=== PATIENT | male | born 1980 | race Caucasian/White ===

== ENCOUNTER 2020-05-13 23:42 | Emergency (ER) | payer SELFPAY ==
[2020-05-14] MEDS ORDERED: Lidocaine/EPINEPHrine/Tetracaine Soln 1 ML TOP ONE (00:04)
[2020-05-14] MEDS ORDERED: Lidocaine 1% with EPINEPHrine 1:100,000 10 ML MDV INJECT ONE (00:04)
--- NOTE | 2020-05-14 00:08 | EDM.PDOC ---
ED HPI GENERAL MEDICAL PROBLEM - General Chief Complaint: Skin Complaint Stated Complaint: POSS BITE ON BUTTOCKS RED AND SWOLLEN Time Seen by Provider: 05/13/20 23:53 Source of Information: Reports: Patient History Limitations: Reports: No Limitations - History of Present Illness INITIAL COMMENTS - FREE TEXT/NARRATIVE: The patient presents with an abscess. This has been going on for about a week. He says the pain and swelling is not going down. He has never had anything like this before. He feels like he has a fever and chills. He is wondering if it is a spider bite. It is on the right upper inner buttock on the gluteal cleft. Onset: Gradual Duration: Week(s): Location: Reports: Other (buttock) Quality: Reports: Sharp Severity: Moderate Improves with: Reports: None Worsens with: Reports: None Associated Symptoms: Reports: Fever/Chills. Denies: Chest Pain, Cough, Headaches, Nausea/Vomiting, Shortness of Breath Treatments GUEST ROOM ATTENDANT: Reports: Other (see below) Other Treatments GUEST ROOM ATTENDANT: hydrocode Right Buttock Pain Score (Numeric/FACES): 2 - Related Data Allergies Allergy/AdvReac Type Severity Reaction Status Date / Time No Known Allergies Allergy Verified 05/13/20 23:55 Home Meds: Home Meds . [No Known Home Meds] 05/13/20 [History] Past Medical History Musculoskeletal History: Reports: Other (See Below) Other Musculoskeletal History: rigt elbow dislocation reduction, right orbital structure fracture repair with hardware. Social & Family History - Caffeine Use Caffeine Use: Reports: Energy Drinks - Recreational Drug Use Recreational Drug Use: No ED ROS GENERAL - Review of Systems Review Of Systems: See Below Constitutional: Reports: Fever, Chills HEENT: Reports: No Symptoms Respiratory: Reports: No Symptoms Cardiovascular: Reports: No Symptoms Endocrine: Reports: No Symptoms GI/Abdominal: Reports: No Symptoms : Reports: No Symptoms Musculoskeletal: Reports: No Symptoms ED EXAM, SKIN/RASH Exam: See Below Exam Limited By: No Limitations General Appearance: Alert, No Apparent Distress Ears: Normal External Exam Nose: Normal Inspection Head: Atraumatic, Normocephalic Neck: Normal Inspection Respiratory/Chest: No Respiratory Distress Extremities: Other (Right gluteal cleft has an abscess) ED SKIN PROCEDURES - I&D Site: Right buttocks Skin Prep: Other (Chlorprep) Local Anesthesia: Lidocaine: 1% with EPI (and LET) Area Incised With: 11 Blade Drainage: Purulent, Bloody, Large Amount Probed to Break Up Loculations: Yes Packed With: 1/4 in. Iodoform Sterile Dressing: Adhesive Dressing Complications: No Course - Vital Signs Last Recorded V/S: Last Vital Signs Temp 99.6 F 05/13/20 23:51 Pulse 100 05/13/20 23:51 Resp 18 05/13/20 23:51 BP Pulse Ox 96 05/13/20 23:51 - Orders/Labs/Meds Orders: Active Orders 24 hr Category Date Time Status CULTURE ANAEROBIC + SMEAR [RM] Stat Lab 05/14/20 01:10 Ordered Meds: Medications Discontinued Medications Generic Name Dose Route Start Last Admin Trade Name Jenni PRN Reason Stop Dose Admin Lidocaine/Epinephrine 10 ml 05/14/20 00:04 05/14/20 00:09 Xylocaine 1% With Epinephrine 1:100,000 INJECT 05/14/20 00:05 10 ml ONETIME ONE Administration Lidocaine/Tetracaine 1 ml 05/14/20 00:04 05/14/20 00:09 Let Soln TOP 05/14/20 00:05 1 ml ONETIME ONE Administration - Re-Assessments/Exams Free Text/Narrative Re-Assessment/Exam: 05/14/20 00:08 I did an US and it appears there is something to drain. I will put some LET on the wound and also use lidocaine with epinephrine. 05/14/20 01:12 I opened up the abscess and there were 3 large pockets. I will get him on keflex and discharge him home. Departure - Departure Time of Disposition: 13:15 Disposition: Home, Self-Care 01 Condition: Good Clinical Impression: Abscess - Discharge Information *PRESCRIPTION DRUG MONITORING PROGRAM REVIEWED*: Not Applicable *COPY OF PRESCRIPTION DRUG MONITORING REPORT IN PATIENT RENÉ: Not Applicable Referrals: PCP,None [Primary Care Provider] - Shona Mercado SPINE SPECIALIST [Nurse Practitioner] - 1 Week Forms: ED Department Discharge Additional Instructions: Soak in a warm tub a couple times per day. Try to leave the packing in for about 3 days. Follow up with Shona Mercado in 4 days if it did not fall out. Take the keflex 4 times per day. Take hydrocodone as needed for pain. Sepsis Event Note (ED) - Evaluation Sepsis Screening Result: No Definite Risk - Focused Exam Vital Signs: Vital Signs Temp Pulse Resp Pulse Ox 05/13/20 23:51 99.6 F 100 18 96 - My Orders Last 24 Hours: My Active Orders 05/14/20 01:10 CULTURE ANAEROBIC + SMEAR [RM] Stat - Assessment/Plan Last 24 Hours: My Active Orders 05/14/20 01:10 CULTURE ANAEROBIC + SMEAR [] Stat
== END 2020-05-14 01:31 | disposition home or self-care (01) ==
LOC: JD.ED 23:42
DX: L02.31 Cutaneous abscess of buttock (principal)
CPT/HCPCS: 10060; 10061; 87075; 87205; 99282; 99283-25

== ENCOUNTER 2020-05-21 07:07 | Day surgery (SDC) | payer SELFPAY ==
[~2020-05-21 07:07] MED LIST: Lactated Ringers 1,000 ML IV SCH; Lidocaine 1%/Sod Bicarbonate in NS 8.4% 1 ML Syringe IDERM PRN; Sodium Chloride 0.9% 10 ML Syringe FLUSH PRN
[2020-05-21] MEDS ORDERED: Lidocaine 1% 4 ML ONE (07:15)
[2020-05-21] MEDS ORDERED: fentaNYL 100 MCG/2 ML SDV ONE (07:16)
[2020-05-21] MEDS ORDERED: Midazolam 1 MG/ML 2 ML SDV ONE ×2 (07:16→08:59)
[2020-05-21] MEDS ORDERED: Propofol 200 MG/20 ML SDV ONE (07:16)
--- NOTE | 2020-05-21 07:56 | PCM.PREANE ---
Preanesthetic Assessment - Procedure Proposed Procedure: debridement of pilonidal disease - Anesthesia/Transfusion/Family Hx Anesthesia History: Prior Anesthesia Without Reaction Family History of Anesthesia Reaction: No Transfusion History: No Prior Transfusion(s) - Review of Systems General: No Symptoms Pulmonary: No Symptoms Cardiovascular: No Symptoms Gastrointestinal: No Symptoms Neurological: No Symptoms Other: Reports: None - Physical Assessment NPO Status Date: 05/20/20 NPO Status Time: 23:45 Vital Signs: Last Vital Signs Temp 98.5 F 05/21/20 07:15 Pulse 74 05/21/20 07:15 Resp 16 05/21/20 07:15 BP 119/76 05/21/20 07:15 Pulse Ox 99 05/21/20 07:15 Height: 5 ft 10 in Weight: 116.573 kg ASA Class: 2 Mental Status: Alert & Oriented x3 Airway Class: Mallampati = 1 Dentition: Reports: Normal Dentition Thyro-Mental Finger Breadths: 3 Mouth Opening Finger Breadths: 3 ROM/Head Extension: Full Lungs: Clear to Auscultation, Normal Respiratory Effort Cardiovascular: Regular Rate, Regular Rhythm, No Murmurs - Allergies Allergies/Adverse Reactions: Allergies Allergy/AdvReac Type Severity Reaction Status Date / Time No Known Allergies Allergy Verified 05/13/20 23:55 - Blood Blood Available: No - Acknowledgements Anesthesia Type Planned: General Anesthesia, MAC Pt an Appropriate Candidate for the Planned Anesthesia: Yes Alternatives and Risks of Anesthesia Discussed w Pt/Guardian: Yes Pt/Guardian Understands and Agrees with Anesthesia Plan: Yes PreAnesthesia Questionnaire Cardiovascular History: Reports: None Respiratory History: Reports: None Gastrointestinal History: Reports: None Musculoskeletal History: Reports: Other (See Below) Other Musculoskeletal History: rigt elbow dislocation reduction, right orbital structure fracture repair with hardware. Neurological History: Reports: None Psychiatric History: Reports: None Endocrine/Metabolic History: Reports: Obesity/BMI 30+ Oncologic (Cancer) History: Reports: None - Infectious Disease History Infectious Disease History: Reports: None - Past Surgical History HEENT Surgical History: Reports: Other (See Below) (orbit fracture- facial fractures) Musculoskeletal Surgical History: Reports: Other (See Below) (elbow dislocation) - SUBSTANCE USE Smoking Status *Q: Never Smoker Tobacco Use Within Last Twelve Months: No Second Hand Smoke Exposure: No Days Per Week of Alcohol Use: 1 (rare) Recreational Drug Use History: No - HOME MEDS Home Medications: Home Meds . [No Known Home Meds] 05/13/20 [History] - CURRENT (IN HOUSE) MEDS Current Meds: Current Medications Lactated Ringer's (Ringers, Lactated) 1,000 mls @ 125 mls/hr IV ASDIRECTED TURNER Stop: 05/21/20 23:00 Last Admin: 05/21/20 07:43 Dose: 125 mls/hr Documented by: Lidocaine/Sodium Bicarbonate (Buffered Lidocaine 1% In Ns 8.4%) 0.25 ml IDERM ONETIME PRN PRN Reason: Prior to IV Start Stop: 05/21/20 18:00 Last Admin: 05/21/20 07:43 Dose: 0.25 ml Documented by: Sodium Chloride (Saline Flush) 10 ml FLUSH ASDIRECTED PRN PRN Reason: Keep Vein Open Stop: 05/21/20 18:00 Discontinued Medications Fentanyl (Sublimaze) Confirm Administered Dose 100 mcg .ROUTE .STK-MED ONE Stop: 05/21/20 07:17 Lidocaine HCl (Xylocaine-Mpf 1%) Confirm Administered Dose 4 mls @ as directed .ROUTE .STK-MED ONE Stop: 05/21/20 07:16 Midazolam HCl (Versed 1 Mg/Ml) Confirm Administered Dose 2 mg .ROUTE .STK-MED ONE Stop: 05/21/20 07:17 Propofol (Diprivan 20 Ml) Confirm Administered Dose 400 mg .ROUTE .STK-MED ONE Stop: 05/21/20 07:17
[2020-05-21] MEDS ORDERED: Bupivacaine 0.5%/EPINEPHrine 1:200,000 50 ML MDV ONE (08:44)
[2020-05-21] MEDS ORDERED: Sodium Chloride 0.9% 0 ML ONE (08:44)
--- NOTE | 2020-05-21 09:38 | PCM48HPAN ---
Post Anesthesia Note - EVALUATION WITHIN 48HRS OF ANESTHETIC Vital Signs in Normal Range: Yes Patient Participated in Evaluation: Yes Respiratory Function Stable: Yes Airway Patent: Yes Cardiovascular Function Stable: Yes Hydration Status Stable: Yes Pain Control Satisfactory: Yes Nausea and Vomiting Control Satisfactory: Yes Mental Status Recovered: Yes Vital Signs: Last Vital Signs Temp 98.5 F 05/21/20 07:15 Pulse 74 05/21/20 07:15 Resp 16 05/21/20 07:15 BP 119/76 05/21/20 07:15 Pulse Ox 99 05/21/20 07:15 0933 108/46 16 98.0 93% 72
--- NOTE | 2020-05-21 10:02 | PCM.PRNOTE ---
- Free Text/Narrative Note: Date: 05/21/2020 Operation: excision, debridement of pilonidal disease Surgeon: Forrest Marquis MD Findings: pilonidal abscess cavity unroofed, with additional tracking sinuses unroofed. Clump of hair removed from cavity. Wound edges debrided back to healthy bleeding tissue. Dilute phenol solution applied to wound surfaces prior to packing with moist gauze. Detailed Report: The patient was taken to the OR and placed in left lateral decubitus position. Timeout was performed and monitored anesthesia care initiated. The lower back and bottom were prepped with iodine and draped in sterile fashion. 10 cc 0.5% marcaine with epinpehrine was injected intradermally around the site of recent incision over abscess site. The edges of the wound were excised sharply in an ellipse using the scalpel. There was tracking down to a midline abscess cavity. This tract was unroofed. A lacrimal probe was inserted into a pit inferior to this site, and the tract was opened from the skin down to the probe using the electrode. Hair was removed from the cavity. The wound edges were debrided back to healthy tissue using a curette, and dilute phenol solution was then applied to the wound surface, taking care to protect the surrounding skin. The wound was packed with moist kerlix gauze, and dressed with ABD pad and mesh panties. The patient tolerated the procedure well.
== END 2020-05-21 13:13 | disposition home or self-care (01) ==
LOC: JD.SDS 07:07
PROVIDERS: ATTEND Surgery
DX: L05.01 Pilonidal cyst with abscess (principal); E66.9 Obesity, unspecified; G47.30 Sleep apnea, unspecified; F17.210 Nicotine dependence, cigarettes, uncomplicated; Z68.37 Body mass index [BMI] 37.0-37.9, adult
CPT/HCPCS: 11042; J2001; J2250; J2704; J3010; J3490; J7120; 00300